=== PATIENT | female | born 1995 | race Caucasian/White ===

== ENCOUNTER 2017-02-16 23:53 | Emergency (ER) | payer BC ==
[~2017-02-16] VITALS: Ht 172.7 cm; Wt 163.8 kg
[~2017-02-16 23:53] MED LIST: CYCLOBENZAPRINE10 MG PO; GABAPENTIN300 MG PO; IBUPROFEN800 MG PO; LEVOTHYROXINE25 MCG PO; METFORMIN HCL500 MG PO; METOPROLOL SUCC25 MG PO; NAPROSYN500 MG PO; NAPROXEN500 MG PO; NORCO 5-325 TA1 EACH PO; PRENATAL 19 TA1 EAC1 PO; SPRINTEC1 EACH PO; TRAMADOL HCL50 MG PO
[2017-02-17] MEDS ORDERED: IBUPROFEN600 MG PO (00:46)
== END 2017-02-17 00:59 | disposition home or self-care (01) ==
LOC: ED 23:53
DX: S80.11XA Contusion of right lower leg, initial encounter (principal); M25.571 Pain in right ankle and joints of right foot; I10 Essential (primary) hypertension; E66.01 Morbid (severe) obesity due to excess calories; Z79.899 Other long term (current) drug therapy; X58.XXXA Exposure to other specified factors, initial encounter
CPT/HCPCS: 73610; 99283

== ENCOUNTER 2017-10-13 22:50 | Emergency (ER) | payer BC ==
[~2017-10-13] VITALS: Ht 172.7 cm; Wt 165.6 kg
[~2017-10-13 22:50] MED LIST changes: +IBUPROFEN600 MG PO
== END 2017-10-14 01:26 | disposition home or self-care (01) ==
LOC: ED 22:50
DX: R10.30 Lower abdominal pain, unspecified (principal); I10 Essential (primary) hypertension; E66.01 Morbid (severe) obesity due to excess calories
CPT/HCPCS: 74177; 80053; 81001; 83690; 84703; 85025; 96361; 96374; 96375; 99284; J1885; J2270; J2405; J7030; Q9967

== ENCOUNTER 2018-10-14 17:46 | Emergency (ER) | payer OTHER ==
[~2018-10-14] VITALS: Ht 172.7 cm; Wt 159.7 kg
--- OUTSIDE RECORDS SUMMARY | ~2018-10-14 | XMS | Encounter Summary ---
Demographics + + + | Address | [address] | | | [place] [address] | + + + | Home Phone | | + + + | Preferred Language | Unknown | + + + | Marital Status | Single | + + + | Christianity Affiliation | Unknown | + + + | Race | White | + + + | Ethnic Group | Not or | + + + Author + + + | Author | [facility] [employer] [facility] | + + + | Organization | [facility] | + + + | Address | Unknown | + + + | Phone | Unavailable | + + + Support + + +---------+ + | Name | Relationship | Address | Phone | + + +---------+ + | Dain Mario | ECON | Unknown | | + + +---------+ + Care Team Providers + +------+ + | Care Senior Tax Specialist Name | Role | Phone | + +------+ + | Bertha Mcgarry | PCP | Unavailable | + +------+ + Encounter Details +--------+ + + + + | Date | Type | Department | Care Team | Description | +--------+ + + + + | 09/21/ | Abstract | Digestive Health | Clinic, Surgery | | | 2017 | | [place] [facility] [address] | | | | | | [address] | | | | | | Mailcode: [place] | | | | | | for Health and | | | | | | [facility], [address] | | | | | | [place], [place] | | | | | | [address] | | | | | | [phone] | | | +--------+ + + + [...]
--- OUTSIDE RECORDS SUMMARY | ~2018-10-14 | XMS | Clinical Summary ---
Demographics + + + | Address | [address] | | | [place] [address] | + + + | Home Phone | | + + + | Preferred Language | Unknown | + + + | Marital Status | Single | + + + | Zoroastrian Affiliation | Unknown | + + + [...] Team Providers + +------+ + | Care Assembly Operator Name | Role | Phone | + +------+ + | Bertha Mcgarry | PP | Unavailable | + +------+ + Source Comments BRAYAN is fully live on both [facility] and [facility] InPatient.[facility] Allergies Not on File Medications Not on [...] recent travel history available. | + + Plan of Treatment + + + + + | Health Maintenance | Due Date | Last Done | Comments | + + + + + | Influenza (Flu) | | | | | vaccination (Season | 9 | | | | Ended) | | | | + + + + + Results [...] | BCBS | xxxxxxxxxxx | 05/24/19 | [phone] | [address] | PPO | | SHIELD | OUT OF | xxxx | 17-Pre | 8 | [address] [address] | | | | STATE | | sent | | [place], | | | | | | | | [place] | | | | | | | | [address] | | + +--------+ +--------+ + +------+ [...] | | [address] | | [address] | al/Lionel | | 1995 | [phone] | [place] | | | [place] | | | 1 (Home) | [address] | + +--------+ +--------+ + +"
--- OUTSIDE RECORDS SUMMARY | ~2018-10-14 | XMS | Clinical Summary ---
Demographics + + + | Address | [address] | | | [place] [address] | + + + | Home Phone | | + + + | Preferred Language | Unknown | + + + | Marital Status | Single | + + + | Druze Affiliation | Unknown | + + + [...] Team Providers + +------+ + | Care High Density Talc Coater Operator Name | Role | Phone | + +------+ + | Bertha Mcgarry | PP | Unavailable | + +------+ + Source Comments BRAYAN is fully live on both [facility] and [facility] InPatient.[facility] Allergies Not on File Medications Not [...] | BCBS | xxxxxxxxxxx | 05/24/19 | [phone] | [address] | PPO | | SHIELD | OUT OF | xxxx | 17-Pre | 8 | [address] [address] | | | | STATE | | sent | | [place], | | | | | | | | [place] | | | | | | | | [address] | | + +--------+ +--------+ + +------+ [...] [place] | | | 1 (Home) | [address] | + +--------+ +--------+ + +"
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
--- OUTSIDE RECORDS SUMMARY | ~2018-10-14 | XMS | Encounter Summary ---
Demographics + + + | Address | [address] | | | [place] [address] | + + + | Home Phone | | + + + | Preferred Language | Unknown | + + + | Marital Status | Single | + + + | Confucianism Affiliation | Unknown | + + + | Race | White | + + + | Ethnic Group | Not or | + + + Author + + + | Author | [facility] [employer] [facility] | + + + | Organization | [facility] | + + + | Address | Unknown | + + + | Phone | Unavailable | + + + Support + + +---------+ + | Name | Relationship | Address | Phone | + + +---------+ + | Dain Mario | ECON | Unknown | | + + +---------+ + Care Team Providers + +------+ + | Care Flood Control Engineer Name | Role | Phone | + +------+ + | Bertha Mcgarry | PCP | Unavailable | + +------+ + Encounter Details +--------+ + + + + | Date | Type | Department | Care Team | Description | +--------+ + + + + | 09/21/ | Abstract | Digestive Health | Clinic, Surgery | | | 2017 | | [place] [facility] [address] | | | | | | [address] | | | | | | Mailcode: [place] | | | | | | for Health and | | | | | | [facility], [address] | | | | | | [place], [place] | | | | | | [address] | | | | | | [phone] | | | +--------+ + + + [...]
--- OUTSIDE RECORDS SUMMARY | ~2018-10-14 | XMS | Clinical Summary ---
Demographics + + + | Address | [address] | | | [place] [address] | + + + | Home Phone | | + + + | Preferred Language | Unknown | + + + | Marital Status | Single | + + + | Caodaism Affiliation | Unknown | + + + | Race | Unknown | + + + | Ethnic Group | Unknown | + + + Author + + + | Author | [facility] | | | and [place] | + + + | Organization | [facility] | | | and [...] Team Providers + +------+ + | Care Turret Lathe Machinist Name | Role | Phone | + [...] +--------+ +---------+--------+ | PROGRESSIVE | PROGRE | [id number] | | [phone] | | Indemn | [...] [place] | | | 1 (Home) | [address] | | | [place] | | | [phone] | | | | | | | 9 (Work) | | + +--------+ +--------+ + + | Debbie Rodriguez | Person | Self | [birth year] | | [address] | | | al/Fam | | 1994 | [place], [place] | | | [place] | | | 1 (Home) | [address] | | | | | | [phone] | | | | | | | 9 (Work) | | + +--------+ +--------+ + + Advance Directives Patient has advance care planning documents on file. For more information, please contact:[facility] [place] [address]
--- OUTSIDE RECORDS SUMMARY | 2018-10-14 17:50 | XMS ---
PreManage Notification: BHARTI WONG Security Ent Nurse Events No recent Security Events currently on file CRITERIA MET - Group Notification - [facility] PROVID[facility] Andrew Chapman Internal Medicine: Pulmonary Disease 03/14/2018-Current PHONE: Unknown Bradley Goyal Current PHONE: Unknown YO Patricia Primary Care Current PHONE: [phone] [place] Current Orthopedic Surgery \T\ Fracture Clinic PHONE: Unknown Schuyler has no Care Guidelines for this patient. Care History Medical/Surgical 03/14/2018 [facility] - PATIENT HAD JEET ALMAGUER HER PCP IN THE PAST. - PATIENT IS NOW ESTABLISHING WITH DR CHAPMAN ON 04/25/18. - Patient is currently established with [facility]. If patient is seen in the ED during business hours. Please contact CHWs at [facility]. Care Recommendation: This patient has had 5 or more Emergency Department visits in the last 12 months.\T\nbsp; Patient requires education on the scope and purpose of the ED as an acute care provider not a Primary Care Provider and should not be utilized for chronic conditions.\T\nbsp; These are guidelines and the provider should exercise clinical judgment when providing care. E.D. VISIT COUNT (12 MO.) 2 [facility]. TOTAL 2 NOTE: Visits indicate total known visits. ED/UCC VISIT TRACKING (12 MO.) 10/14/2018 17:48 [facility] [place] TYPE: Emergency COMPLAINT: - RIGHT ELBOW PAIN/INJURY 03/13/2018 19:10 [facility] [place] TYPE: Emergency COMPLAINT: - R FOOT INJURY DIAGNOSES: - Bee allergy status - Other foreign body or object entering through skin, initial encounter - Superficial foreign body, right foot, initial encounter - Morbid (severe) obesity due to excess calories - Essential (primary) hypertension - Superficial foreign body, right foot, initial encounter INPATIENT VISIT TRACKING (12 MO.) No inpatient visits to display in this time frame [id number]
[2018-10-14] MEDS ORDERED: IBUPROFEN600 MG PO (18:39)
== END 2018-10-14 18:51 | disposition home or self-care (01) ==
LOC: ED 17:46
DX: G56.21 Lesion of ulnar nerve, right upper limb (principal); I10 Essential (primary) hypertension; Z91.030 Bee allergy status
CPT/HCPCS: 73080; 99283

== ENCOUNTER 2019-03-17 13:10 | Emergency (ER) | payer OTHER ==
[~2019-03-17] VITALS: Ht 172.7 cm; Wt 152.4 kg
--- OUTSIDE RECORDS SUMMARY | ~2019-03-17 | XMS | Clinical Summary ---
Demographics + + + | Address | [address] | | | [place] [address] | + + + | Home Phone | | + + + | Preferred Language | Unknown | + + + | Marital Status | Single | + + + | Buddhist Affiliation | Unknown | + + + | Race | White | + + + | Ethnic Group | Not or | + + + Author + + + | Author | [facility] | + + + | Organization | [facility] | + + + | Address | Unknown | + + + | Phone | Unavailable | + + + Support + + +---------+ + | Name | Relationship | Address | Phone | + + +---------+ + | Dain Mario | ECON | Unknown | | + + +---------+ + Care Team Providers + +------+ + | Care Hog Grader Name | Role | Phone | + +------+ + | ZeferinoBertha YO | PCP | | + +------+ + Source Comments BRAYAN is fully live on both [facility] and [facility] InPatient.[facility] Allergies Not on File Medications Not on file Active Problems Not on file Social History + +-------+ +--------+------+ | Tobacco Use | Types | Packs/Day | Years | Date | | | | | Used | | + +-------+ +--------+------+ | Never Assessed | | | | | + +-------+ +--------+------+ + + + | Sex Assigned at | Date Recorded | | | | + + + | Not on file | | + + + + + + + | Job Start Date | Occupation | Industry | + + + + | Not on file | Not on file | Not on file | + + + + + + + + | Travel History | Travel Start | Travel End | + + + + + + | No recent travel history available. | + + Last Filed Vital Signs Not on file Plan of Treatment + + + + + | Health Maintenance | Due Date | Last Done | Comments | + + + + + | Influenza (Flu) | | | | | vaccination (#1) | 9 | | | + + + + + | Pneumococcal | Aged Out | | No longer eligible | | vaccination | | | based on patient's | | | | | age to complete this | | | | | topic | + + + + + Results Not on filefrom Last 3 Months Insurance + +--------+ +--------+ + +------+ | Payer | Benefi | Subscriber | Effect | Phone | Address | Type | | | t Plan | ID | yasmin | | | | | | / | | Dates | | | | | | Group | | | | | | + +--------+ +--------+ + +------+ | BLUE CROSS BLUE | BCBS | xxxxxxxxxxx | 05/24/19 | [phone] | [address] | PPO | | SHIELD | OUT OF | xxxx | 17-Pre | 8 | [address] | | | | STATE | | sent | | [place], | | | | | | | | [place] | | | | | | | | [address] | | + +--------+ +--------+ + +------+ + +--------+ +--------+ + + | Guarantor Name | Accoun | Relation to | Date | Phone | Billing Address | | | t Type | Patient | of | | | | | | | | | | + +--------+ +--------+ + + | Debbie Rodriguez | Person | Self | [birth year] | | [address] | | [address] | al/Fam | | 1995 | [phone] | [place] | | | [place] | | | 1 (Home) | [address] | + +--------+ +--------+ + +"
--- OUTSIDE RECORDS SUMMARY | ~2019-03-17 | XMS | Encounter Summary ---
Demographics + + + | Address | [address] | | | [place] [address] | + + + | Home Phone [...] Author + + + | Author | [facility] | + + + | Organization | [facility] | + + + | Address | Unknown | + + + | Phone | Unavailable | + + + Support + + +---------+ + | Name | Relationship | Address | Phone | + + +---------+ + | Dain Mario | ECON | Unknown | | + + +---------+ + Care Team Providers + +------+ + | Care Nut Steamer Name | Role | Phone | + +------+ + | Bertha Mcgarry | PCP | | + +------+ + Encounter Details +--------+ + + + + | Date | Type | Department | Care Team | Description | +--------+ + + + + | 09/21/ | Abstract | Digestive Health | Clinic, Surgery | | | 2017 | | [facility] [address] | | | | | | [address] | | | | | | Mailcode: [place] | | | | | | for Health and | | | | | | Healing, [address] | | | | | | [place], [place] | | | | | | [address] | | | | | | [phone] | | | +--------+ + + + + Social History + +-------+ +--------+------+ | Tobacco [...] recent travel history available. | + + documented as of this encounter Plan of Treatment Not on filedocumented as of this encounter Visit Diagnoses Not on filedocumented in this encounter"
--- OUTSIDE RECORDS SUMMARY | ~2019-03-17 | XMS | Encounter Summary ---
Demographics + + + | Address | [address] | | | [place] [address] | + + + | Home Phone | | + + + | Preferred Language | Unknown | + + + | Marital Status | Single | + + + | Moravian Affiliation | Unknown | + + + | Race | White | + + + | Ethnic Group | Not or | + + + Author + + + | Author | [facility] | + + + | Organization | [facility] | + + + | Address | Unknown | + + + | Phone | Unavailable | + + + Support + + +---------+ + | Name | Relationship | Address | Phone | + + +---------+ + | Dain Mario | ECON | Unknown | | + + +---------+ + Care Team Providers + +------+ + | Care Child Care Giver Name | Role | Phone | + [...] | | | | | | Mailcode: [place] | | | | | | for Health and | | | | | | Healing, [address] | | | | | | [place], [place] | | | | | | [address] | | | | | | [phone] | | | +--------+ + + + [...]
--- OUTSIDE RECORDS SUMMARY | ~2019-03-17 | XMS | Clinical Summary ---
Demographics + + + | Address | [address] | | | [place] [address] | + + + | Home Phone | | + + + | Preferred Language | Unknown | + + + | Marital Status | Single | + + + | Quaker Affiliation | Unknown | + + + [...] Team Providers + +------+ + | Care Electrical Worker Name | Role | Phone | + +------+ + | ZeferinoBertha YO | PCP | | + +------+ + Source Comments BRAYAN is fully live on both [facility] and [facility] InPatient.[facility] Allergies Not on File Medications Not on [...] | BCBS | xxxxxxxxxxx | 05/24/19 | [phone] | [address] | PPO | | SHIELD | OUT OF | xxxx | 17-Pre | 8 | [address] | | | | STATE | | sent | | [place], | | | | | | | | [place] | | | | | | | | [address] | | + +--------+ +--------+ + +------+ [...] [place] | | | 1 (Home) | [address] | + +--------+ +--------+ + +"
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
[2019-03-17] MEDS ORDERED: GABAPENTIN100 MG PO (13:22)
[2019-03-17] MEDS ORDERED: CYCLOBENZAPRINE10 MG PO (13:43)
[2019-03-17] MEDS ORDERED: NORCO 5-325 TA1 EACH PO (13:43)
== END 2019-03-17 16:01 | disposition home or self-care (01) ==
LOC: ED 13:10
DX: M54.5 Low back pain (principal); I10 Essential (primary) hypertension; Z87.891 Personal history of nicotine dependence; Z91.030 Bee allergy status
CPT/HCPCS: 72100; 84703; 99284

== ENCOUNTER 2023-11-28 21:50 | Emergency (ER) | payer OTHER, MEDICAID ==
[~2023-11-28] VITALS: Ht 172.7 cm; Wt 155.2 kg
[~2023-11-28 21:50] MED LIST changes: +GABAPENTIN100 MG PO; +PREDNISONE20 MG PO
[2023-11-28] MEDS ORDERED: HYDROXYZINE HCL10 MG PO (22:07)
[2023-11-28] MEDS ORDERED: ACETAMINOPHEN 500 MG TAB PO ONE (22:30)
[2023-11-28 23:33] VITALS: BP 115/68
== END 2023-11-29 00:09 | disposition home or self-care (01) ==
LOC: ED 21:50
DX: S09.90XA Unspecified injury of head, initial encounter (principal); W22.8XXA Striking against or struck by other objects, initial encounter; I10 Essential (primary) hypertension; E66.01 Morbid (severe) obesity due to excess calories; Z88.1 Allergy status to other antibiotic agents; Z91.030 Bee allergy status; Z79.899 Other long term (current) drug therapy
CPT/HCPCS: 70450; 72125; 84703; 99284-25; A9270

== ENCOUNTER 2024-02-24 23:53 | Emergency (ER) | payer MEDICARE ==
[~2024-02-24] VITALS: Ht 172.7 cm; Wt 160.0 kg
[~2024-02-24 23:53] MED LIST changes: +HYDROXYZINE HCL10 MG PO
[2024-02-25] MEDS ORDERED: VENTOLIN HFA18 GM INH (00:13)
[2024-02-25] MEDS ORDERED: methylPREDNISolone 4 MG HOME.PACK PO ONE (01:15)
[2024-02-25 01:44] VITALS: BP 133/74
== END 2024-02-25 01:40 | disposition home or self-care (01) ==
LOC: ED 23:53
DX: M54.50 Low back pain, unspecified (principal); G89.29 Other chronic pain; E66.01 Morbid (severe) obesity due to excess calories; Z87.891 Personal history of nicotine dependence; Z79.899 Other long term (current) drug therapy; Z91.030 Bee allergy status; Z88.1 Allergy status to other antibiotic agents; Z91.09 Other allergy status, other than to drugs and biological substances
CPT/HCPCS: 99283

== ENCOUNTER 2025-02-18 19:27 | Emergency (ER) | payer MEDICARE, OTHER ==
[~2025-02-18] VITALS: Ht 172.7 cm; Wt 162.5 kg
[~2025-02-18 19:27] MED LIST changes: +VENTOLIN HFA18 GM INH
[2025-02-18 20:38] LABS: INFLUENZA B NAA NEGATIVE (NEGATIVE); RESPIRATORY SYNCYTIAL VIR NAA NEGATIVE (NEGATIVE)
[2025-02-18] MEDS ORDERED: FAMOTIDINE 20 MG/ 2 ML VIAL IV ONE (21:15)
[2025-02-18] MEDS ORDERED: LACTATED RINGER'S 1,000 ML IV ONE ×2 (21:15→22:45)
[2025-02-18 21:37] LABS: BASOPHILS 0.3 % (0.1-1.2); EOSINOPHILS 0.2 % (0.7-5.8); LYMPHOCYTES 20.8 % (19.3-51.7); MCH 30.2 PG (25.6-32.2); MCHC 32.3 g/dL (32.2-35.5); MCV 93.6 fL (79.4-94.8); MONOCYTES 6.3 % (4.7-12.5); NEUTROPHILS 71.8 % (34.0-71.1); RBC 5.29 M/uL (3.93-5.22)
[2025-02-18 21:53] LABS: ALT (SGPT) 30.0 U/L (14-59); AST (SGOT) 17.0 U/L (15-37); GLOMERULAR FILTRATION RATE,EST 87.0 mL/min (>60); PROTEIN, TOTAL 8.1 g/dL (6.4-8.2)
[2025-02-18 22:04] LABS: UREA NITROGEN 10.0 mg/dL (7-18)
[2025-02-18] MEDS ORDERED: EPIN0.3P IM (22:16)
[2025-02-18] MEDS ORDERED: ACETAMINOPHEN 500 MG TAB PO ONE (22:30)
[2025-02-18 23:05] LABS: BLOOD/HGB, URINE NEGATIVE (Negative); KETONE, URINE SMALL (Negative); LEUK ESTERASE, URINE NEGATIVE (negative); NITRITE, URINE NEGATIVE (negative)
[2025-02-18 23:20] LABS: AMPHETAMINES, URINE NEGATIVE (NEGATIVE); BARBITURATES, URINE NEGATIVE (NEGATIVE); BENZODIAZEPINE, URINE NEGATIVE (NEGATIVE); CANNABINOID, URINE NEGATIVE (NEGATIVE); COCAINE, URINE NEGATIVE (NEGATIVE); ECSTASY, URINE NEGATIVE (NEGATIVE); FENTANYL, URINE NEGATIVE (NEGATIVE); METHADONE, URINE NEGATIVE (NEGATIVE); OPIATES, URINE NEGATIVE (NEGATIVE); OXYCODONE, URINE NEGATIVE (NEGATIVE); PHENCYCLIDINE, URINE NEGATIVE (NEGATIVE)
[2025-02-18] MEDS ORDERED: ONDANSETRON 4 MG HOME.PACK SL ONE (23:45)
[2025-02-18 23:54] VITALS: BP 132/68
== END 2025-02-18 23:54 | disposition home or self-care (01) ==
LOC: ED 19:27
PROVIDERS: Internal Medicine
DX: B34.9 Viral infection, unspecified (principal); E66.01 Morbid (severe) obesity due to excess calories; Z87.891 Personal history of nicotine dependence; Z91.030 Bee allergy status; Z91.09 Other allergy status, other than to drugs and biological substances; Z88.1 Allergy status to other antibiotic agents
CPT/HCPCS: 36415; 80053; 80307; 81003; 83690; 83735; 84703; 85025; 87502; 96361; 96374; 96375; 99284-25; A9270; J2405; J7121; U0002

== ENCOUNTER 2025-04-14 21:39 | Emergency (ER) | payer MEDICARE, OTHER ==
[~2025-04-14] VITALS: Ht 172.7 cm; Wt 166.4 kg
[~2025-04-14 21:39] MED LIST changes: +EPIN0.3P IM
[2025-04-14] MEDS ORDERED: CYCLOBENZAPRINE10 MG PO (21:50)
[2025-04-14 22:39] VITALS: BP 118/85
== END 2025-04-14 22:42 | disposition home or self-care (01) ==
LOC: ED 21:39
DX: S63.92XA Sprain of unspecified part of left wrist and hand, initial encounter (principal); F43.10 Post-traumatic stress disorder, unspecified; X50.9XXA Other and unspecified overexertion or strenuous movements or postures, initial encounter; Z91.030 Bee allergy status; Z88.1 Allergy status to other antibiotic agents; Z91.048 Other nonmedicinal substance allergy status; Z87.891 Personal history of nicotine dependence
CPT/HCPCS: 73140; 99283